=== PATIENT | female | born 1940 | race Caucasian/White ===

== ENCOUNTER 2020-05-19 16:49 | Emergency (ER) | payer MEDICARE, SELFPAY ==
--- NOTE | ~2020-05-19 | CT_ITS ---
EXAMINATION: CT abdomen pelvis wo con DATE: 05/19/2020 20:00 INDICATION: Right flank pain TECHNIQUE: Computed tomography (CT) of the abdomen and pelvis was performed without intravenous contr ast. Automated exposure control and iterative reconstruction technique were employed. The dose-length product was 180.10 mGy-cm. COMPARISON: CT dated 02/24/2006 FINDINGS: Mild emphysema. Heart size is normal. No pericardial or pleural effusion. Atherosclerotic coronary ar sheila calcifications and/or stenting. Small sliding-type hiatal hernia. Unchanged 8 mm cyst in the lef t hepatic lobe. Mild intra and extra hepatic ductal or ductal dilation which may be related to prior cholecystectomy with surgical clips at the gallbladder fossa. Spleen, pancreas and bilateral adrenal glands are normal. Kidneys and ureters are normal with no urolithiasis, hydroureteronephrosis or carol nephric/ureteral stranding. Large amount of stool scattered throughout the colon. There is moderate c olonic diverticulosis with a sigmoid predominance. There is no adjacent inflammatory change to sugges t diverticulitis. The appendix is not visualized. No pericecal inflammatory change to suggest acute a ppendicitis. No bowel obstruction. Bladder is normal. The uterus is not identified and has likely bee n surgically resected. No free intraperitoneal gas or fluid. No pathologically enlarged abdominal or pelvic lymphadenopathy. There is calcified atherosclerosis of the aorta and many of the other arterie s. Mild lumbar levocurvature with moderate spondylosis. IMPRESSION: 1. Mild intra and extra hepatic biliary ductal dilation likely related to prior cholecystectomy but w ould correlate with liver function tests. Could consider MRCP if subsequently clinically indicated. 2. Small sliding-type hiatal hernia. 3. Moderate diverticulosis. 4. Large amount of colonic stool. Correlate clinically for constipation. Reviewed, dictated and finalized at location A. [employer] IMPRESSION: 1. Mild intra and extra hepatic biliary ductal dilation likely related to prior cholecystectomy but would correlate with liver function tests. Could consider MRCP if subsequently clinically indicated. 2. Small sliding-type hiatal hernia. 3. Moderate diverticulosis. 4. Large amount of colonic stool. Correlate clinically for constipation.
--- NOTE | ~2020-05-19 | XR_ITS ---
EXAMINATION: XR chest 1V portable DATE: 05/19/2020 20:09 INDICATION: Shortness of breath TECHNIQUE: frontal view of the chest was obtained. COMPARISON: Chest radiograph dated 05/26/[address] abdomen dated 05/19/2020 FINDINGS: The lungs remain clear with no focal airspace opacities, pulmonary edema, pleural effusion or pneumot horax. Increased lucency in the upper lung zones with mild architectural distortion consistent with e mphysema better appreciated on prior CT . The cardiomediastinal silhouette is normal. Right reverse t otal shoulder arthroplasty. IMPRESSION: 1. Emphysema. Reviewed, dictated and finalized at location A. AND [employer] IMPRESSION: 1. Emphysema.
[2020-05-19 17:19] VITALS: BP 136/67; PULSE 94; RESP 18; TEMP 36.9; O2SAT 93
--- NOTE | 2020-05-19 18:30 | PC.NURSE ---
pt wants covid test. states had recent exposure
--- NOTE | 2020-05-19 19:29 | ECG_ITS ---
Measurements Intervals [place]ura [place] Rate: 70 P: 68 AK: 145 QRS: 34 QRSD: 78 T: 68 QT: 379 QTc: 409 Interpretive Statements SINUS RHYTHM CANNOT RULE OUT SEPTAL INFARCT, AGE INDETERMINATE BASELINE ARTIFACT- I, II, III, AVR, AVL, AVF, V4-V6 ABNORMAL ECG Electronically Signed On 05-19-2020 21:00:23 FIELD CAPTAIN by Nav Harper D.O.
[2020-05-19 19:58] LABS: Basophils Absolute Auto 0.1 K/mm3 (0.0-0.1); Basophils Percent Auto 0.7 % (0.2-1.2); Eosinophils Absolute Auto 0.1 K/mm3 (0-0.3); Eosinophils Percent Auto 1.4 % (0-4.4); Hematocrit 43.9 % (37.0-47.0); Hemoglobin 14.2 g/dL (12.0-15.0); Immature Granulocyte Absolute 0.02 K/mm3 (0.00-0.031); Immature Granulocyte Percent A 0.2 % (0-0.5); Lymphocytes Absolute Auto 3.61 K/mm3 (0.9-3.2); Lymphocytes Percent Auto 38.5 % (18.3-44.2); Mean Corpuscular HGB Conc 32.3 g/dl (32-36); Mean Corpuscular Hemoglobin 31.3 pg (26-34); Mean Corpuscular Volume 96.7 fl (80-100); Mean Platelet Volume 9.1 fl (7.4-10.4); Monocytes Absolute Auto 0.7 K/mm3 (0.1-0.6); Monocytes Percent Auto 6.9 % (2.6-8.5); Neutrophils Absolute Auto 4.9 K/mm3 (1.3-6.7); Neutrophils Percent Auto 52.3 % (45.5-73.1); Platelet Count Result 357 k/mm3 (150-375); Red Blood Count 4.54 M/mm3 (4.2-5.4); Red Cell Distribution Width 13.9 % (11.5-14.5); White Blood Count 9.4 K/mm3 (4.5-10.0)
[2020-05-19 20:03] LABS: Add Urine Microscopic? YES; Appearance Urine Cloudy (Clear); Bacteria Urine Trace /hpf; Bilirubin Urine Negative (Negative); Blood Urine Negative (Negative); Color Urine Yellow (Yellow); Glucose Urine UA Negative (Negative); Ketones Urine Negative (Negative); Leukocyte Esterase Ur Negative LEU/UL (Negative); Mucus Urine Heavy /lpf; Nitrate Urine Negative (Negative); Protein Urine 1+ mg/dL (Negative); RBC Urine 0-2 /hpf (0-2); Specific Grav Ur 1.026 (1.001-1.035); Squamous Epithelial Cell Urine Many /hpf (Few); Urobilinogen Urine Negative mg/dL (<2.0); WBC Urine 0-3 /hpf
[2020-05-19 20:13] LABS: Alanine Aminotransferase 13 U/L (4-35); Albumin Level 4.3 g/dL (3.5-5.1); Alkaline Phosphatase 69 U/L (38-126); Anion Gap 5 mmol/L (8-16); Aspartate Amino Transferase 28 U/L (14-36); Bilirubin,Total 0.3 mg/dL (0.2-1.3); Blood Urea Nitrogen 16 mg/dL (7-17); Calcium 9.2 mg/dL (8.4-10.2); Carbon Dioxide 36 mmol/L (22-30); Chloride 100 mmol/L (98-107); Estimated CRCL calculation 47 ml/min; Estimated Glomerular Filt Rate > 60; Glucose 101 mg/dL (65-105); Potassium 4.2 mmol/L (3.4-5.0); Sodium 141 mmol/L (137-145)
[2020-05-19 20:15] LABS: Lactic Acid Reflex 1.2 mmol/L (0.7-2.1)
[2020-05-19 20:25] LABS: Troponin I < 0.012 ng/mL (0.000-0.034)
--- NOTE | 2020-05-19 20:56 | ED.GENADULT ---
HPI - General Adult General Chief complaint: Unspecified Stated complaint: generalized pain Time Seen by Provider: 05/19/20 19:16 History of Present Illness HPI narrative: Patient is a 80-year-old female who presents the emergency department with chief complaint of generalized body aches. Patient reports that she is traveling from [place] has had a little bit of a runny nose is also had some pain in her right flank and pain in her right hip. Patient reports that she has history of arthritis and states that she is concerned that she may have COVID-19. The patient also report that she is concerned that she may have a kidney stone. Related Data Allergies Allergy/AdvReac Type Severity Reaction Status Date / Time No Known Allergies Allergy Unknown Verified 05/19/20 18:29 Review of Systems Review of Systems: Narrative: A 10 system review of systems was completed on the patient and is negative except for what is stated in the HPI. Nursing and ancillary documentation was reviewed. PMFSH Comments Past medical history significant for rheumatoid arthritis Social history the patient is from [place] denies illicit drug use Exam Narrative: Exam Narrative: GENERAL: Well-appearing, well-nourished, and in no acute distress. HEAD: Normocephalic, atraumatic. EYES: PERRLA and EOMI. ENT: Nares clear, no rhinorrhea or epistaxis. Mucous membranes moist. NECK: Supple. CHEST: Clear to auscultation. No respiratory distress. HEART: Regular rate and rhythm. No murmur heard. Normal peripheral pulses. ABDOMEN: Soft, nontender, nondistended, normal active bowel sounds. EXTREMITIES: Normal range of motion. No edema. SKIN: Warm, dry, no rash. NEURO: No focal deficits. Alert and oriented x3. PSYCH: Normal mood and affect. Course Vital Signs Vital signs: Vital Signs Temperature 36.9 C 05/19/20 17:19 Pulse Rate 94 05/19/20 17:19 Respiratory Rate 18 05/19/20 17:19 Blood Pressure 136/67 05/19/20 17:19 Pulse Oximetry 93 05/19/20 17:19 Temperature 36.9 C 05/19/20 17:19 Pulse Rate 94 05/19/20 17:19 Respiratory Rate 18 05/19/20 17:19 Blood Pressure 136/67 05/19/20 17:19 Pulse Oximetry 93 05/19/20 17:19 Medical Decision Making Vital Signs Vital Signs: Vital Signs Temperature 36.9 C 05/19/20 17:19 Pulse Rate 94 05/19/20 17:19 Respiratory Rate 18 05/19/20 17:19 Blood Pressure 136/67 05/19/20 17:19 Pulse Oximetry 93 05/19/20 17:19 Temperature 36.9 C 05/19/20 17:19 Pulse Rate 94 05/19/20 17:19 Respiratory Rate 18 05/19/20 17:19 Blood Pressure 136/67 05/19/20 17:19 Pulse Oximetry 93 05/19/20 17:19 Lab Data Result diagrams: 05/19/20 19:52 05/19/20 19:50 Labs: Lab Results 05/19/20 05/19/20 05/19/20 Range/Units 19:50 19:52 19:52 WBC 9.4 (4.5-10.0) K/mm3 RBC 4.54 (4.2-5.4) M/mm3 Hgb 14.2 (12.0-15.0) g/dL Hct 43.9 (37.0-47.0) % MCV 96.7 (80-100) fl MCH 31.3 (26-34) pg MCHC 32.3 (32-36) g/dl RDW 13.9 (11.5-14.5) % Plt Count 357 (150-375) k/mm3 MPV 9.1 (7.4-10.4) fl Immature Gran % (Auto) 0.2 (0-0.5) % Neut % (Auto) 52.3 (45.5-73.1) % Lymph % (Auto) 38.5 (18.3-44.2) % Pacific % (Auto) 6.9 (2.6-8.5) % Eos % (Auto) 1.4 (0-4.4) % Baso % (Auto) 0.7 (0.2-1.2) % Lymph # (Auto) 3.61 H (0.9-3.2) K/mm3 Pacific # (Auto) 0.7 H (0.1-0.6) K/mm3 Eos # (Auto) 0.1 (0-0.3) K/mm3 Baso # (Auto) 0.1 (0.0-0.1) K/mm3 Abs Immat Gran (auto) 0.02 (0.00-0.031) K/mm3 Absolute Neuts (auto) 4.9 (1.3-6.7) K/mm3 Absolute Nucleated RBC 0.0 (0.0-0.012) K/mm3 Nucleated RBC % 0.0 (0.0-0.2) % Sodium 141 Cancelled (137-145) mmol/L Potassium 4.2 Cancelled (3.4-5.0) mmol/L Chloride 100 Cancelled (98-107) mmol/L Carbon Dioxide 36 H Cancelled (22-30) mmol/L Anion Gap 5 L Cancelled (8-16) mmol/L BUN 16 Cancelled (7-17) mg/dL
[2020-05-19 21:18] VITALS: BP 142/80; PULSE 78; TEMP 37; O2SAT 96
[2020-05-20 19:48] LABS: SARS-CoV-2 RNA PCR Negative
== END 2020-05-19 21:19 | disposition home or self-care (01) ==
PROVIDERS: Emergency Provider Emergency Medicine; Referring Provider Emergency Medicine
DX: B34.9 Viral infection, unspecified (principal); M25.50 Pain in unspecified joint; M06.9 Rheumatoid arthritis, unspecified
CPT/HCPCS: 36415; 71045; 74176; 80053; 81001; 83605; 84484; 85025; 93005; 99284; 99285; C9803; U0003; U0005